=== PATIENT | female | born 1970 | race Caucasian/White ===

== ENCOUNTER 2019-07-22 10:52 | Outpatient (CLI) | payer BC ==
[2019-07-22 11:10] LABS: PLATELET COUNT 416 K/uL (152-353)
[2019-07-22 11:13] LABS: POTASSIUM 3.8 mmol/L (3.6-5.2); SODIUM 139 mmol/L (136-145)
== END 2019-07-22 22:05 | disposition home or self-care (01) ==
LOC: LABW 10:52
PROVIDERS: Internal Medicine
DX: M25.511 Pain in right shoulder (principal)
CPT/HCPCS: 36415; 80053; 82553; 83880; 84484; 85027; 85379

== ENCOUNTER 2020-04-29 12:56 | Outpatient (CLI) | payer BC ==
[2020-04-29 17:08] LABS: POTASSIUM 3.6 mmol/L (3.6-5.2)
== END 2020-04-29 20:27 | disposition home or self-care (01) ==
LOC: LABW 12:56
PROVIDERS: Internal Medicine
DX: E87.6 Hypokalemia (principal)
CPT/HCPCS: 36415; 80053; 80061

== ENCOUNTER 2020-06-20 08:29 | Outpatient (CLI) | payer BC ==
[2020-06-20 10:01] LABS: PLATELET COUNT 366 K/uL (152-353)
[2020-06-20 10:26] LABS: POTASSIUM 3.8 mmol/L (3.6-5.2)
== END 2020-06-20 22:29 | disposition home or self-care (01) ==
LOC: LABW 08:29
PROVIDERS: Internal Medicine Gastroenterology
DX: K64.0 First degree hemorrhoids (principal); K92.1 Melena
CPT/HCPCS: 80053; 82272; 85027

== ENCOUNTER 2020-06-30 15:31 | Outpatient (CLI) | payer BC | END 2020-06-30 19:18 | disposition home or self-care (01) | LOC: CT 15:31 | DX: G44.201 Tension-type headache, unspecified, intractable (principal) ==

== ENCOUNTER 2020-12-16 15:12 | Outpatient (CLI) | payer BC, OTHER | END 2020-12-16 21:15 | disposition home or self-care (01) | LOC: INF 15:12 | PROVIDERS: ATTEND Internal Medicine | DX: Z23 Encounter for immunization (principal) | CPT/HCPCS: 96372 ==

== ENCOUNTER 2021-01-12 13:57 | Outpatient (CLI) | payer BC, OTHER | END 2021-01-12 21:28 | disposition home or self-care (01) | LOC: INF 13:57 | PROVIDERS: ATTEND Internal Medicine | DX: Z23 Encounter for immunization (principal) | CPT/HCPCS: 96372 ==

== ENCOUNTER 2021-04-28 14:08 | Outpatient (CLI) | payer BC | END 2021-04-28 21:42 | disposition home or self-care (01) | LOC: MRI 14:08 | PROVIDERS: ATTEND Internal Medicine | DX: M25.561 Pain in right knee (principal) ==

== ENCOUNTER 2022-12-02 07:40 | Outpatient (CLI) | payer BC ==
[2022-12-02 08:18] LABS: PLATELET COUNT 323 K/uL (152-353)
[2022-12-02 08:25] LABS: POTASSIUM 3.9 mmol/L (3.6-5.2)
== END 2022-12-02 21:17 | disposition home or self-care (01) ==
LOC: LABW 07:40
PROVIDERS: ATTEND Internal Medicine
DX: I10 Essential (primary) hypertension (principal); R30.0 Dysuria
CPT/HCPCS: 36415; 80053; 80061; 81002; 84439; 84443; 85027